=== PATIENT | female | born 1980 | race Caucasian/White ===

== ENCOUNTER 2023-03-29 13:09 | Outpatient (CLI) | payer OTHER | END 2023-03-29 13:10 | disposition home or self-care (01) | LOC: BICMAMMO 13:09 | PROVIDERS: ATTEND Nurse Practitioner Women's Health | DX: Z12.31 Encounter for screening mammogram for malignant neoplasm of breast (principal); Z85.42 Personal history of malignant neoplasm of other parts of uterus | CPT/HCPCS: 77063; 77067 ==